=== PATIENT | female | born 2000 | race Caucasian/White ===

== ENCOUNTER 2021-07-24 10:59 | Emergency (ER) | payer OTHER, SELFPAY ==
--- NOTE | 2021-07-24 11:05 | ED.URI ---
HPI - URI/Sore Throat General Chief Complaint: Upper Respiratory Infection Stated Complaint: congestion wheezing Time Seen by Provider: 07/24/21 11:05 Source: patient and RN notes reviewed History of Present Illness HPI Narrative: Patient is a 20-year-old female who presents the urgent care with her aunt with complaints of cough, congestion, wheezing and nasal drainage. Patient is here from [place] and states that her symptoms have been ongoing for approximately 2 weeks. Patient is asthmatic and did not bring her albuterol inhaler or nebulizer. Patient denies of any fevers or positive ill exposures. No other acute complaints. No acute distress noted. Patient aware of the plan of care. Some parts of this dictation were generated by voice recognition software and may contain typographical and/or grammatical inaccuracies. Related Data Home Medications Medication Instructions Recorded Confirmed albuterol mcg INHALATION 07/24/21 albuterol sulfate 2.5 mg INHALATION Q4H PRN 07/24/21 07/24/21 Allergies Allergy/AdvReac Type Severity Reaction Status Date / Time No Known Allergies Allergy Verified 07/24/21 11:18 Review of Systems Review of Systems: CONSTITUTIONAL: Denies fever, chills, or sweats. EYES: Denies visual changes, redness, or discharge. ENT: Denies rhinorrhea, congestion, sore throat, or otalgia. Reports of postnasal drainage CARDIOVASCULAR: Denies chest pain, palpitations, or edema. RESPIRATORY: Reports of persistent cough, wheezing and intermittent dyspnea GASTROINTESTINAL: Denies abdominal pain, nausea, vomiting, or diarrhea. GENITOURINARY: Denies dysuria or hematuria. SKIN: Denies rash or itching. MUSCULOSKELETAL: Denies back pain, joint pain, or myalgia. NEUROLOGIC: Denies headache, numbness, or weakness. All other systems reviewed are negative, except as documented in HPI. PMFSH Comments At the time of my signature, I reviewed and agree with the nursing past medical, surgical, social, and family history. There is no relevant family history pertinent to the patient complaint. Exam Narrative: GENERAL: This is a well-nourished, well-developed patient, in no apparent distress. HEAD: normocephalic, atraumatic. EYES: PERRL. Sclera clear/white. Vision is grossly intact. EARS: External ears normal, auditory canals clear and without drainage, TMs normal without perforation. Hearing grossly intact. NOSE: External nose normal with no obvious nasal discharge, nares without redness, no rhinorrhea. THROAT: Mucous membranes moist, posterior pharynx clear. Moderate postnasal drainage NECK: Neck supple CARDIOVASCULAR: Regular rate and rhythm without murmurs, gallops, or rubs. RESPIRATORY: Crackles expiratory wheezes throughout SKIN: warm, intact with no suspicious lesions or rash, good texture and turgor. NEURO: awake, alert, and oriented to person, place and time. There were no obvious focal neurologic abnormalities. EXTREMITIES: No clubbing, cyanosis, or edema. Course Course Level of Care: Express Care Visit Vital Signs Vital signs: Vital Signs Temperature 98.3 F 07/24/21 11:08 Pulse Rate 99 07/24/21 11:08 Respiratory Rate 16 07/24/21 11:08 Blood Pressure 132/81 07/24/21 11:08 Pulse Oximetry 100 07/24/21 11:08 Temperature 98.3 F 07/24/21 11:19 Pulse Rate 99 07/24/21 11:19 Respiratory Rate 16 07/24/21 11:19 Blood Pressure 132/81 07/24/21 11:19 Pulse Oximetry 100 07/24/21 11:19 Reviewed MDM - URI/Sore Throat MDM Narrative Medical decision making narrative: Advised the patient to complete the steroid regimen as prescribed. Be sure to eat and drink with the medication. Take a daily antihistamine such as Claritin or Zyrtec. Use the albuterol inhaler as needed for shortness of breath or coughing fits. If you develop any increase in symptoms associated with inability to breathe or chest pain?go to the emergency room. Follow-up with your PCP within 2 to 5 days or for worsening sympt
[2021-07-24 11:08] VITALS: BP 132/81; PULSE 99; RESP 16; TEMP 36.8; O2SAT 100
[2021-07-24 11:19] VITALS: BP 132/81; PULSE 99; RESP 16; TEMP 36.8; O2SAT 100
[2021-07-24] MEDS: IPRATROPIUM BR 0.02% INH SOLN 0.5 MG/2.5 ML VIAL INHALATION (11:37)
[2021-07-24] MEDS: ALBUTEROL SULFATE NEB 2.5 MG/3 ML INH INHALATION (11:37)
== END 2021-07-24 11:56 | disposition home or self-care (01) ==
PROVIDERS: Emergency Provider Nurse Practitioner Family
DX: J40 Bronchitis, not specified as acute or chronic (principal)
CPT/HCPCS: 94640; 99213; G0463